=== PATIENT | male | born 1975 | race Caucasian/White ===

== ENCOUNTER 2025-07-12 20:15 | Emergency (ER) | payer BC ==
[~2025-07-12] VITALS: Ht 177.8 cm; Wt 124.7 kg
[2025-07-12 21:24] VITALS: BP 99/64; TEMP 98.9
[2025-07-12 22:51] LABS: PLATELET COUNT (AUTO) 192 K/uL (150-450); RED BLOOD CELL COUNT(AUTO) 4.75 MIL/uL (4.5-6.0); RED CELL DISTRIBUTION WIDTH 14.7 % (11.5-15.0); WHITE BLOOD COUNT (AUTO) 5.9 K/uL (4.3-11.0)
[2025-07-12 22:56] LABS: CALCIUM, SERUM 8.5 mg/dL (8.5-10.1); CREATININE 1.1 mg/dL (0.6-1.3); SODIUM SERUM 136.0 mmol/L (136-145); UREA NITROGEN, BLOOD 21.0 mg/dL (7-18)
[2025-07-12 23:09] LABS: NT-PRO BNP 1122.0 pg/mL (0-125)
[2025-07-12] MEDS ORDERED: BENZ-13 PO (23:23)
[2025-07-12] MEDS ORDERED: GUAI1TBM19 PO (23:23)
[2025-07-12] MEDS ORDERED: AZIT500T4 PO (23:23)
[2025-07-13 00:10] VITALS: O2SAT 95
== END 2025-07-13 01:18 | disposition home or self-care (01) ==
LOC: ER 20:19
DX: U07.1 COVID-19 (principal); J20.9 Acute bronchitis, unspecified; R05.9 Cough, unspecified; E11.9 Type 2 diabetes mellitus without complications; G47.30 Sleep apnea, unspecified; Z88.2 Allergy status to sulfonamides; Z79.4 Long term (current) use of insulin; Z60.2 Problems related to living alone
CPT/HCPCS: 36415; 71046; 80048-TC; 83880; 85025-TC

== ENCOUNTER 2025-07-13 23:10 | Emergency (ER) | payer BC ==
[~2025-07-13] VITALS: Ht 177.8 cm; Wt 130.6 kg
[~2025-07-13 23:10] MED LIST: AZIT500T4 PO; BENZ-13 PO; GUAI1TBM19 PO
[2025-07-13 23:14] VITALS: TEMP 98.1
[2025-07-13 23:58] VITALS: BP 113/78; O2SAT 97
[2025-07-14 00:29] LABS: ABG BASE EXCESS 1.2 mmol/L (-2.0-3.0); ABG OXYGEN SATURATION 97.0 % (94.0-98.0); ABG PCO2 31.4 mmHg (35.0-48.0); ABG PH 7.494 (7.350-7.450); ABG PO2 92.9 mmHg (83.0-108.0); ABG TOTAL HEMOGLOBIN 14.3 G/dL (13.5-17.5); FLOW, BLOOD GAS 0.00 L/min (0.00-30.00); FRACTIONATED INSPIRED OXYGEN 21.0 %; SITE, ABG LEFT RADIAL
== END 2025-07-14 00:41 | disposition home or self-care (01) ==
LOC: ER 23:12
DX: U07.1 COVID-19 (principal); R06.02 Shortness of breath; E11.9 Type 2 diabetes mellitus without complications; Z79.4 Long term (current) use of insulin; Z79.899 Other long term (current) drug therapy; Z88.2 Allergy status to sulfonamides; Z86.79 Personal history of other diseases of the circulatory system; Z87.09 Personal history of other diseases of the respiratory system; Z60.2 Problems related to living alone
CPT/HCPCS: 36600; 82803-TC